=== PATIENT | female | born 1945 | race African-American/Black ===

== ENCOUNTER 2018-10-18 15:09 | Emergency (ER) | payer MEDICARE, MEDICAID ==
[~2018-10-18] VITALS: Ht 167.6 cm; Wt 90.7 kg
[2018-10-18] MEDS ORDERED: Albuterol/Ipratropium 3ml neb HHN ONE (15:30)
--- NOTE | 2018-10-18 15:33 | Emergency Room Report ---
History of Present Illness General Chief Complaint: Flu Like Symptoms Source: Patient Present Illness HPI Patient is a 73-year-old female presented after increased cough and muscle aches. Patient reports of increased right-sided shoulder pain. She additionally reports having increased cough productive of clear sputum. She reports being a smoker. She states that she had been taking medications for blood pressure as well as for lung disease. She reports taking inhalers but does not know the names. She had been taking Norvasc as well as lisinopril. Patient had not been vomiting or having any diarrhea. She denies any fever she reports having chronic leg swelling which is unchanged.Patient states that she takes some diuretics for blood pressure. Allergies: Coded Allergies: No Known Allergies (Unverified , 10/18/18) Patient History Past Medical History: see triage record Now: No Reviewed Nursing Documentation: PMH: Agreed; PSxH: Agreed Nursing Documentation-PMH Past Medical History: No History, Except For Hx Hypertension: Yes Hx Gastrointestinal Problems: Yes Review of Systems All Other Systems: negative except mentioned in HPI Physical Exam Vital Signs Date Time Temp Pulse Resp B/P (MAP) Pulse Ox O2 Delivery O2 Flow Rate FiO2 10/18/18 15:14 98.1 80 20 95 Room Air Sp02 EP Interpretation: reviewed, normal General Appearance: normal inspection, alert, GCS 15, obese, Chronically Ill Head: atraumatic ENT: normal ENT inspection, hearing grossly normal, normal voice Neck: normal inspection, full range of motion, supple, no bony tend Respiratory: normal inspection, no retraction, wheezing Cardiovascular #1: regular rate, rhythm, edema Gastrointestinal: normal inspection, normal bowel sounds, non tender, soft, no guarding, no hernia Genitourinary: no CVA tenderness Musculoskeletal: normal inspection, back normal, normal range of motion Neurologic: normal inspection, alert, oriented x3, responsive, land inspector III-XII nml as tested, speech normal Psychiatric: normal inspection, judgement/insight normal, mood/affect normal Skin: normal inspection, normal color, no rash Medical Decision Making Diagnostic Impression: Primary Impression: COPD (chronic obstructive pulmonary disease) ER Course Patient presented for cough. Differential diagnosis included but was not limited to bronchitis, pneumonia, pulmonary embolism, pericarditis, asthma, foreign body. Differential diagnosis include was not limited to pneumonia, CHF , ASAF inhibitor induced cough, viral bronchitis among others. Because of complexity of patient's case imaging studies were ordered.Chest x-ray 1 view read by radiology showed cardiomediastinal appearance within normal limits for age with lungs clear. There is no pleural effusion noted. Patient was given breathing treatment with improvement in her symptoms. Patient was noted to have sick contacts at home. patient will be given prescription for oral antibiotics due to her current smoking status. Patient was to follow-up with her primary care physician for recheck. She is advised to return if she had any worsening of condition. Last Vital Signs Date Time Temp Pulse Resp B/P (MAP) Pulse Ox O2 Delivery O2 Flow Rate FiO2 10/18/18 15:14 98.1 80 20 95 Room Air Status: improved Disposition: HOME, SELF-CARE Condition: Stable Scripts Azithromycin* (ZITHROMAX*) 250 Mg Tablet 250 MG ORAL DAILY, #6 TAB 0 Refills Take two tables once daily for 1 day, then one tablet once daily for 4 days. Prov: Antwan Langford MD 10/18/18 Guaifenesin/Dextromethorphan (Guaifenesin Dm Syrup) 5 Ml Syrup 1 TSP ORAL Q8H, #118 ML 0 Refills Prov: Antwan Langofrd MD 10/18/18 Albuterol Sulfate* (ALBUTEROL SULFATE MDI*) 8.5 Gm Hfa.aer.ad 2 PUFF INH Q4H, #1 INH 0 Refills Prov: Antwan Langford MD 10/18/18 Antwan Langford MD October 18, 2018 15:33
--- NOTE | 2018-10-18 15:34 | NUR ---
ED Nurse Note: Pt has been having flu-like symptoms x 2 weeks and n/v for months. pt denies pain. pt stated she and her bf want to be checked. seen by chris. respiratory therapist on bedside. ekg was taken. will continue to monitor.
[2018-10-18 15:40] VITALS: BP 133/94
--- NOTE | 2018-10-18 15:47 | NUR ---
ED Nurse Note: xray on bedside.
--- NOTE | 2018-10-18 16:11 | Diagnostic Imaging Report ---
Indication: Dyspnea Comparison: None A single view chest radiograph was obtained. Findings: Cardiomediastinal appearance is within normal limits for age. The lungs are clear. Pulmonary vascularity is appropriate. The diaphragmatic contour is smooth and costophrenic angles are sharp. No pleural effusions are identified. The bones are unremarkable. Impression: No acute findings
[2018-10-18] MEDS ORDERED: ALBUTEROL SULF8.5 GM INH (16:25)
[2018-10-18] MEDS ORDERED: GUAIFENESIN DM118 M1 ORAL (16:25)
[2018-10-18] MEDS ORDERED: ZITHROMAX250 MG ORAL (16:26)
[2018-10-18 16:38] VITALS: BP 138/78
--- NOTE | 2018-10-18 16:38 | NUR ---
ER DISCHARGE NOTE: Patient is cleared to be discharged per ERMD, pt is aox4, on room air, with stable vital signs. pt was given dc and prescription instructions, pt was able to verbalize understanding, pt id band removed without complications. pt is able to ambulate with steady gait. pt took all belongings.
--- NOTE | 2018-10-19 14:29 | Cardiology Report ---
APPROVED REPORT EKG Measurement Heart [id number] [place] 178P-2 [id number] Normal sinus rhythm Left axis deviation Inferior infarct, age undetermined Abnormal ECG
== END 2018-10-18 16:38 | disposition home or self-care (01) ==
LOC: EMR 16:10
DX: J44.9 Chronic obstructive pulmonary disease, unspecified (principal); E66.9 Obesity, unspecified; M25.511 Pain in right shoulder; F17.200 Nicotine dependence, unspecified, uncomplicated; I10 Essential (primary) hypertension; J98.4 Other disorders of lung; Z68.32 Body mass index [BMI] 32.0-32.9, adult
CPT/HCPCS: 71045; 93005; 94640; 94664; 99284; J7620